=== PATIENT | male | born 1955 | race Caucasian/White ===

== ENCOUNTER 2018-12-16 07:43 | Inpatient (IN) ==
--- NOTE | 2018-11-24 16:40 | PAT Medication Instructions ---
Medication Instructions Date of Service November 24, 2018 Home Medications meloxicam 7.5 mg PO DAILY PRN multivitamin 1 tab PO QAM oxymetazoline [Afrin (oxymetazoline)] 1 spray INTRANASAL DAILY PRN undecylenic acid [Fungi-Nail] 1 applic TOPICAL BID PRN ASK your surgeon for instructions meloxicam 7.5 mg PO DAILY PRN STOP taking 24 hours before surgery undecylenic acid [Fungi-Nail] 1 applic TOPICAL BID PRN DO NOT take the morning of surgery multivitamin 1 tab PO QAM oxymetazoline [Afrin (oxymetazoline)] 1 spray INTRANASAL DAILY PRN (if needed) Other Notes If you have any questions please call us at [phone] or [phone] or [phone] or [phone]
--- NOTE | 2018-11-25 11:22 | Anesthesiology Consultation ---
Date of Service November 25, 2018 Assessment & Plan (1) Encounter for pre-operative examination: Chart Review Chart Review: Pending: Refer to Additional Notes / Consult section (pending preop testing (labs, EKG, CXR)) and Patient seen in Pre Admission Testing Teaching & Discussion Pre-Anesthesia Teaching/Discussion Notes: Instructed NPO after midnight before surgery,except medications with 15 cc of water. Medication instructions prov ided according to the PAT guidelines. History Surgery Operation Date: 12/16/18 10:40 Proposed Procedures p Right Total Knee Arthroplasty - Dontae Bautista MD Height/Weight Height: 5 ft 6 in Weight: 78.4 kg Allergies Allergy/AdvReac Type Severity Reaction Status Date / Time No Known Allergies Allergy Verified 11/21/18 08:04 Medications Home Medications Medication Instructions Recorded Confirmed Last Taken meloxicam 7.5 mg PO DAILY PRN 11/21/18 11/21/18 Unknown multivitamin 1 tab PO QAM 11/21/18 11/21/18 Unknown oxymetazoline [Afrin 1 spray INTRANASAL DAILY PRN 11/21/18 11/21/18 Unknown (oxymetazoline)] undecylenic acid [Fungi-Nail] 1 applic TOPICAL BID PRN 11/21/18 11/21/18 Unknown Past Medical History Medical History DJD (degenerative joint disease) Seasonal allergies Exercise / Class Metabolic Activity II 4-5 Yardwork/Stairs/Walk up hill Past Surgical History Surgical History Hx of arthroscopy of right knee Hx of colonoscopy Hx of tonsillectomy Past Anesthesia History No Hx of Anesthesia Complications and No Family Hx of Anesthesia Complications History of PONV No Hx of PONV and Hx of Motion Sickness (remote hx (on boat ride)) Social History Smoking Status: Never smoker Do You Dip or Chew Tobacco: No Hx Alcohol Use: Yes Alcohol type: beer alcohol intake frequency: a few times a month Hx Substance Use: No substance use type: does not use Review of Systems Occasional diet related reflux. Patient denies chest pain, shortness of breath, dyspnea on exertion, cough, wheezing, palpitations. Physical Exam Vital Signs VITALS BP 147/97 (per patient, baseline BP 130's/80's; Patient advised to followup with PCP regarding elevated BP) P 69 TEMP 97.7 SP02 97%RA RESP 16 PHYSICAL Full neck and c-spine range of motion. Full TMJ range of motion. TMD 3 finger breaths Mallampati Score 2 Dentition: intact Lungs: clear throughout to auscultation Cardiac: regular rate and rhythm, no murmurs noted Spine: normal Carotid arteries: negative bruit Extremities: no edema
--- NOTE | 2018-11-25 11:56 | XRay Report ---
XR chest Pre-admission PA/Lat CLINICAL HISTORY: Preoperative chest COMPARISON STUDY: No previous studies for comparison. FINDINGS: The cardiac and mediastinal contours are normal. There is no evidence of focal pulmonary co nsolidation. There is no evidence of failure. No pleural effusions are visualized.[ There is minimal subsegmental lingular atelectasis/scarring. IMPRESSION: No active disease in the chest. Electronically signed by: Trav Downey M.D. 11/25/2018 11:55 AM
[2018-11-25 12:31] LABS: Basophils # (auto) 0.03 K/uL (0-0.2); Basophils % (auto) 0.5 %; Eosinophils # (auto) 0.48 K/uL (0-0.5); Eosinophils % (auto) 8.2 %; Hematocrit (blood only) 45.2 % (42-52); Hemoglobin 15.5 g/dL (14.0-18.0); Lymphocytes # (auto) 1.75 K/uL (1.2-3.4); Lymphocytes % (auto) 29.9 %; Mean Corpuscular Hgb Conc 34.3 g/dL (32-36); Mean Corpuscular Volume 87.4 fL (80-100); Mean Platelet Volume 9.7 fL (7.4-10.4); Monocytes # (auto) 0.83 K/uL (0.11-0.59); Monocytes % (auto) 14.2 %; Neutrophils # (auto) 2.77 K/uL (1.4-6.5); Neutrophils % (auto) 47.2 %; Platelet Count 269 K/uL (130-400); RDW Coefficient of Variation 14.1 % (11.5-14.5); RDW Standard Deviation 45.3 fL (36.4-46.3); Red Blood Count 5.17 M/uL (4.7-6.1); White Blood Count 5.86 K/uL (4.8-10.8)
[2018-11-25 12:46] LABS: Calcium 9.1 mg/dl (8.5-10.1); Creatinine Clr Calc Pharmacy 71.4 ml/min; Est GFR (African American) 88.6; Est GFR (Non-African American) 76.4; Potassium 4.2 mmol/L (3.5-5.1)
[2018-11-25 12:49] LABS: Partial Thromboplastin Time 26.3 Seconds (21.0-31.0); Prothrombin Time 10.5 Seconds (9.0-12.0)
--- NOTE | 2018-12-10 20:02 | History and Physical Report ---
DATE OF ADMISSION: 12/16/2018 CHIEF COMPLAINT: Right knee pain and discomfort. HISTORY OF PRESENT ILLNESS: A 63-year-old gentleman from [place], who presents for treatment of his right knee. He has got a long history of right knee problems and his right knee was scoped by Dr. Murillo back in 2006. It really has bothered him ever since then. He has been through extensive conservative treatment including therapy, viscosupplementation and steroid shots, which have not helped much. He takes meloxicam with minimal relief. He has got global pain. The more he walks, the more it hurts. He would like to have his knee fixed. PAST MEDICAL HISTORY: Includes gastroesophageal reflux disease. PAST SURGICAL HISTORY: Includes right knee arthroscopy [place] [address] Murillo. ALLERGIES: HAY FEVER. CURRENT MEDICATIONS: Meloxicam. SOCIAL HISTORY: A 63-year-old male. He is . Does not smoke. Rare alcohol intake. FAMILY HISTORY: Noncontributory. REVIEW OF HISTORY: Negative for diabetes, neurologic problem, vascular problem, bleeding disorders. Denies any chest pain or shortness of breath. No history of DVT or PE. No known bleeding problems. PHYSICAL EXAMINATION: GENERAL: Reveals a healthy, pleasant, middle-aged male. Looks to be in good health. HEENT: Benign. NECK: Supple, no lymphadenopathy. LUNGS: Clear to auscultation. HEART: Regular rate and rhythm. ABDOMEN: Soft, nontender, nondistended. EXTREMITIES: Grossly neurovascularly intact except as follows: Examination of the right knee reveals the patient ambulates with a bit of a limp. He has got varus alignment to his knee and does have a varus thrust with weightbearing. He is tender over the medial joint line. Small knee effusion. He has got soft endpoint to his Luly and increased translation. No real pivot. No varus or valgus instability. Sukhwinder's causes pain but no mechanical symptoms. Range of motion is 5 degrees short of full extension, 125 degrees of flexion. No particular pain with hip motion. X-RAYS: X-ray of the right knee is reviewed. It shows advanced right knee medial compartment DJD. He has got complete loss of his medial joint space. He has got tibial femoral subluxation and osteophytes off the medial femoral condyle and medial tibial plateau. He has got moderate patellofemoral arthritis as well. ASSESSMENT: A 63-year-old male with a history of knee arthroscopy in the past with right knee degenerative joint disease. 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 He has failed conservative care. PLAN: We talked about treatment. We are going to proceed with right total knee replacement. The risks and benefits of right total knee replacement were explained to the patient including but not limited to DVT, PE, , infection, neurological injury, vascular injury, bleeding problem, pain, limited range of motion, stiffness, failure to relieve symptoms, incomplete relief of symptoms, need for further surgery in the future, fracture, leg length inequality, nerve palsy, etc. The patient understands and desires to proceed. Informed consent was obtained. We did talk to him about holding his meloxicam 10 days preop. He will plan to be discharged home and either do home health or outpatient therapy.
[~2018-12-16 07:43] MED LIST: ACETAMINOPHEN 500 MG TAB PO SCH; BUPIVACAINE 0.5 % 5 MG/1 ML PF 10ML VIAL ONE; BUPIVACAINE LIPOSOME/PF 266 MG, BUPIVACAINE/EPINEPHRINE 50 ML, SODIUM CHLORIDE 0.9% 30 ... INFIL SCH; CEFAZOLIN 2000MG 2,000 MG/15 ML SYR IV SCH; FAMOTIDINE 20 MG TAB PO SCH; GABAPENTIN 600 MG DOSE PO SCH; LR 500ML BOLUS, THEN 15ML/HR IV SCH; LR 60ML/HR IV SCH; METOCLOPRAMIDE HCL 10 MG TABLET PO SCH; SCOPOLAMINE 1.5 MG TDSY TD SCH; TRANEXAMIC ACID 1,000 MG **IV Intra-op IV SCH
--- NOTE | 2018-12-16 08:52 | History & Physical Bridge Note ---
Date of Service December 16, 2018 History & Physical Bridge Note I have examined the patient, reviewed the History & Physical and in the interval since the performance of the History & Physical I have noted the following changes of clinical significance: no changes noted
[2018-12-16] MEDS ORDERED: ONDANSETRON INJ 2 MG/ML 2 ML VIAL IV PRN ×2 (09:26→14:18)
[2018-12-16] MEDS ORDERED: ATROPINE SULFATE 0.1 MG/ML 10ML SYR IV PRN (09:26)
[2018-12-16] MEDS ORDERED: fentaNYL citrate 100 MCG/2 ML VIAL IV PRN (09:26)
[2018-12-16] MEDS ORDERED: ePHEDrine sulfate 50 MG/ML AMP IV PRN (09:26)
[2018-12-16] MEDS ORDERED: MIDAZOLAM HCL 1 MG/ML 2ML VIAL ONE (09:56)
[2018-12-16] MEDS ORDERED: fentaNYL citrate 100 MCG/2 ML VIAL ONE (09:56)
[2018-12-16] MEDS ORDERED: PROPOFOL IV EMULSION 10 MG/ML 20 ML VIAL IV ONE (10:40)
[2018-12-16] MEDS ORDERED: BACITRACIN INJ 50,000 UNIT VIAL ONE (10:54)
[2018-12-16] MEDS ORDERED: SODIUM CHLORIDE 0.9% PF 50 ML VIAL ONE (10:54)
[2018-12-16] MEDS ORDERED: BUPIVACAINE LIPOSOME 1.3% 266 MG/20 ML VIAL ONE (10:54)
[2018-12-16] MEDS ORDERED: BUPIVACAINE/EPINEPHRINE 0.25% 1:200,000 30 ML VIAL ONE (10:54)
[2018-12-16] MEDS ORDERED: ePHEDrine sulfate 50 MG/ML SYR ONE (12:44)
--- NOTE | 2018-12-16 12:49 | Post Operative Brief Note ---
PG Immediate Post Op with CF Date of Surgery December 16, 2018 Pre & Post Diagnosis Operation Date: 12/16/18 10:40 Pre-Op Diagnosis: Right Knee Advanced Degenerative Joint Disease Post-Op Diagnosis: Right Knee Advanced Degenerative Joint Disease Procedure Operation Date: 12/16/18 10:40 Actual Procedures p Right Total Knee Arthroplasty(Right) - Dontae Bautista MD Surgeon Dontae Bautista MD Protective Services Case Worker Ruth, PAC Estimated Blood Loss 50 Findings Consistent with Post-Op Diagnosis Fluids 1500 cc Specimens Specimen Description: Permanent specimen A: right knee bone and tissue Drains Phillips Catheter (16fr phillips catheter placed by Vicki Miranda PA-C, without diff iculty; phillips demonstrates clear yellow urine. Output measured and recorded by anesthsia.) Anesthesia Type Spinal MAC Complications none Disposition Accompanied Patient To Recovery: No Disposition: Recovery Room
--- NOTE | 2018-12-16 13:27 | XRay Report ---
TWO VIEWS RIGHT KNEE CLINICAL HISTORY: Postoperative examination. FINDINGS: AP and crosstable lateral portable views of the right knee are obtained. A right knee arthr oplasty is in near anatomic alignment. There has been undersurface remodeling of the patella. No acut e fracture is seen. There are expected postoperative changes around the knee including skin clips, so ft tissue edema, and subcutaneous gas. IMPRESSION: Expected postoperative changes status post right knee arthroplasty. No acute fracture is seen. Electronically signed by: Fabian Morataya M.D. 12/16/2018 1:25 PM
--- NOTE | 2018-12-16 14:12 | Anesthesiology Progress Note ---
Date of Service December 16, 2018 Anesthesia Post Procedure Vital Signs Vital Signs: Temp Pulse Pulse Resp BP Pulse Ox 12/16/18 13:50 97.5 F L 69 17 114/62 96 12/16/18 13:40 56 L 19 109/58 L 96 12/16/18 13:30 62 17 129/65 96 12/16/18 13:20 77 19 122/65 97 12/16/18 13:10 71 24 119/66 99 12/16/18 13:00 58 L 24 100/57 L 97 12/16/18 12:54 97.5 F L 64 14 103/56 L 95 12/16/18 08:23 97.5 F L 72 18 153/96 H 99 Transfer of Care Handoff Completed per policy Notes Mental Status: alert / awake / arousable and participated in evaluation Patient Amnestic to Procedure: Yes Nausea / Vomiting: adequately controlled Pain: adequately controlled Airway Patency, RR, SpO2: stable & adequate BP & HR: stable & adequate Hydration State: stable & adequate Neuraxial Anesthesia: was administered and sensory block is resolving Anesthetic Complications: no major complications apparent and Pt Satisfied with anesthetic care
[2018-12-16] MEDS ORDERED: NALOXONE HCL 0.4 MG/1 ML VIAL/CARP IV PRN (14:18)
[2018-12-16] MEDS ORDERED: TAMSULOSIN HCL 0.4 MG CAP PO PRN (14:18)
[2018-12-16] MEDS ORDERED: OXYMETAZOLINE 0.05% 30 ML BTL PRN (14:18)
[2018-12-16] MEDS ORDERED: METOCLOPRAMIDE HCL INJ 5 MG/ML 2 ML VIAL IV PRN (14:18)
[2018-12-16] MEDS ORDERED: UNDECYLENIC ACID TOP PRN (14:18)
[2018-12-16] MEDS ORDERED: ALUMINUM/MAGNESIUM SUSP 30 ML UDC PO PRN (14:18)
[2018-12-16] MEDS ORDERED: HYDROmorphone INJ 0.5 MG/0.5 ML SYR IV PRN (14:18)
[2018-12-16] MEDS ORDERED: bisacodyL 10 MG SUPP PR PRN (14:18)
[2018-12-16] MEDS ORDERED: MAGNESIUM HYDROXIDE SUSP 30 ML UDC PO PRN (14:18)
[2018-12-16] MEDS ORDERED: OXYCODONE HCL IR 5 MG TAB (IMMEDIATE RELEASE) PO PRN (14:18)
[2018-12-16] MEDS ORDERED: SODIUM CHLORIDE 0.9% 1000ML 1,000 ML IV SCH (15:00)
--- NOTE | 2018-12-16 15:42 | Progress Note ---
DATE: 12/16/2018 SUBJECTIVE: A 63-year-old gentleman postop from a right knee replacement. He is doing pretty well. Just starting to get a little discomfort in his leg. Denies any chest pain or shortness of breath. Not feeling dizzy or lightheaded. OBJECTIVE: VITAL SIGNS: Temperature is 36.5. Vital signs stable. GENERAL: Reveals a healthy, pleasant, middle-aged male. He is sitting up in bed and talking to his . He looks comfortable. LUNGS: Clear to auscultation. HEART: Has a regular rate and rhythm. ABDOMEN: Soft, nontender, nondistended. EXTREMITIES: Grossly neurovascularly intact except as follows: Examination of the right lower extremity reveals the leg to be well aligned. Dressing is clean, dry, and intact. He can dorsiflex and plantarflex his foot appropriately. He is neurologically intact. X-RAYS: His x-ray of the right knee from recovery room reviewed. It is slightly rotated film. No signs of problems. ASSESSMENT: A 63-year-old gentleman postop from a right knee replacement, doing well. His pain is controlled. He is neurologically intact. PLAN: 1. DVT prophylaxis including thigh-high TEDs, SCDs, and aspirin twice a day. 2. PT/OT. Weight bear as tolerated. Right total knee protocol. 3. Pain control, doing pretty well with current pain regimen. 4. IV antibiotics x24 hours. 5. Disposition: Plan to discharge to home and he is going to do outpatient therapy.
[2018-12-16] MEDS: CHECK SCOPOLAMINE PATCH PLACEMENT SCH (16:04)
[2018-12-16] MEDS: KETOROLAC 30 MG/ML VIAL IV SCH ×2 (16:05→21:51)
[2018-12-16] MEDS: FERROUS GLUCONATE 324 MG TAB PO SCH (17:44)
[2018-12-16] MEDS: ASCORBIC ACID 500 MG TAB PO SCH (17:44)
[2018-12-16] MEDS ORDERED: TRANEXAMIC ACID 1,000 MG in 0.9 % SODIUM CHLORIDE 100 ML IV SCH (18:50)
[2018-12-16] MEDS: CEFAZOLIN 1000MG 1,000 MG/7.5 ML SYR IV SCH (18:53)
[2018-12-16] MEDS: ASPIRIN 81 MG ECTAB PO SCH (20:17)
[2018-12-16] MEDS: TAPENTADOL HCL ER 50 MG TABCR PO SCH (20:17)
[2018-12-16] MEDS: ACETAMINOPHEN 500 MG TAB PO SCH (20:17)
[2018-12-16] MEDS: DOCUSATE SODIUM 100 MG CAP PO SCH (20:17)
--- NOTE | 2018-12-16 20:45 | Operative Report ---
DATE OF OPERATION: 12/16/2018 SURGEON: Dontae Bautista MD. CORPORATE TUTOR: MAKENZIE Macias PREOPERATIVE DIAGNOSIS: Right knee degenerative joint disease. POSTOPERATIVE DIAGNOSIS: Right knee degenerative joint disease. PROCEDURE PERFORMED: Right cemented posterior stabilized total knee arthroplasty. COMPLICATIONS: None. ESTIMATED BLOOD LOSS: 50 mL. FLUID REPLACEMENT: 1500 mL of crystalloid fluid replacement. TOURNIQUET TIME: 59 minutes at 300 mmHg. ANESTHESIA: Spinal with adductor canal block. DRAINS: None. SPECIMENS: Right knee sent for pathology. OPERATIVE INDICATIONS: The patient is a 63-year-old gentleman who has had a long history of right knee pain and discomfort. He had a right knee arthroscopy done over 10 years ago, which provided minimal relief. He has developed persistent and progressive pain over the past 10 years. He failed conservative treatment. X-rays revealed advanced DJD. He elected to proceed with total knee arthroplasty. OPERATIVE FINDINGS: Revealed advanced right knee DJD. Extensive grade 4 [id number] disease in the medial and patellofemoral compartments and spotty grade 4 changes laterally. He had a significant joint effusion with varus deformity to his knee and osteophytes in all 3 compartments. OPERATIVE IMPLANTS: Consisted of: 1. Biomet Vanguard size 62.5 right posterior stabilized femoral component. 2. A Biomet size 71 tibial tray. 3. A 12 mm posterior stabilized polyethylene insert. 4. A 31 x 8 all poly patella. OPERATIVE PROCEDURE: The patient was taken to the operating room, identified and placed on the operating table in supine position. All contact areas were appropriately padded. IV antibiotics were provided by the anesthesia team. A spinal anesthetic and adductor canal block had been provided in the holding area. Mackey catheter was placed in sterile fashion. A right thigh tourniquet was then placed and the right lower extremity was then prepped and draped in usual sterile fashion. The right leg was elevated and exsanguinated with an Esmarch and tourniquet was placed at 300 mmHg. An anterior approach to the right knee was then performed through a longitudinal incision centered over the patella. Sharp dissection was carried through the subcutaneous tissue down to the level of the extensor mechanism. Medial parapatellar arthrotomy incision was made. Some subperiosteal dissection was carried out medially. The fat pad resected from underneath the patellar tendon. The lateral patellofemoral ligament was released. The patella was everted and knee was flexed. The osteophytes were taken off the distal femur. The ACL and PCL were then released from the distal femur and the tibia subluxated anteriorly. External tibial alignment jig was then placed in the anterior face of the tibia and adjusted 16 mm medially. Proximal tibial cut was made to remove about a millimeter or 2 of bone from most deficient aspect of the medial tibial plateau. Some osteophytes were taken off the medial and posteromedial tibial plateau. Tibia was sized to a size 71. Attention was then drawn to the femur. The distal femur was entered with a sharp drill bit. Intramedullary canal was suctioned. A right 6 degree valgus cutting guide was placed. Distal femoral cutting block was pinned in place. Distal femoral cut was made to take an additional 3 mm of bone off the distal femur. The femur was then sized to a size 62.5. We did downsize this slightly. The AP cutting block was pinned parallel to the epicondylar axis, which was 4 degrees of external rotation. The anterior cut, anterior chamfer cut, posterior cut, posterior chamfer cuts were made. Box cutting guide was placed and adjusted slightly lateral and the box cut was made. The knee was flexed. The remnants of medial and lateral menisci were excised. The osteophytes were taken off the posterior aspect of the femur. Trial femoral component was placed. The tibial tray was pinned in maximum external rotation and drill and stem punch were used to create defect in proximal tibia for the tibial tray. The knee was then trialed and the 12 mm insert fit most appropriately. Attention was then drawn to the patella. The patella was cleaned of all soft tissues. Patella thickness measured 22 mm in thickness, it was cut down to 13. It was sized to a size 31 patella. Lug holes were drilled for a 31 patella. Lateral osteophytes were removed. Patella button was placed. Knee was taken through range of motion, patella tracked nicely with no thumbs test. Attention was then drawn toward placement of permanent components. All trial components were removed. Bone plug was placed into the distal femur to limit blood loss. A double batch of Palacos G cement was mixed. Biomet PaletteAppguard size 62.5 right posterior stabilized femoral component, size 71 tibial tray, a 12 mm posterior stabilized polyethylene insert, and a 31 x 8 all poly patella were then cemented in place. Knee was brought out into full extension until cement hardened. A final cement check was then performed. Pericapsular tissues were injected with a total of 100 mL of combination of 20 mL of Exparel, 30 mL of normal saline, 50 mL of 0.25% Marcaine with epinephrine. The patient did receive 1 g of tranexamic acid. The tourniquet was then let down for a final tourniquet time of 59 minutes. Hemostasis was assured using electrocautery. The extensor mechanism was then closed with combination of #1 PDS suture and #1 Vicryl suture in a [id number] fashion. Extensor mechanism was checked and found to be intact. The subcutaneous tissue was then closed with 2 Dexon suture in a buried interrupted fashion. Skin was closed with skin familia. Leg was then cleaned, dried and a sterile dressing of Xeroform, 4 x 4, sterile cast padding and Balbir bandage were applied. The patient was then transferred to the recovery room in stable condition. The patient tolerated the procedure well with no complications. All instrument, needle and sponge counts were correct at the end of the operation. I attest to the content of the Intraoperative Record and any orders documented therein. Any exception s are noted below.
[2018-12-16] MEDS ORDERED: SENNA 8.6 MG TAB PO SCH (21:00)
[2018-12-17] MEDS: CHECK SCOPOLAMINE PATCH PLACEMENT SCH (01:02)
[2018-12-17] MEDS: KETOROLAC 30 MG/ML VIAL IV SCH ×2 (03:08→10:08)
[2018-12-17] MEDS: CEFAZOLIN 1000MG 1,000 MG/7.5 ML SYR IV SCH (03:09)
[2018-12-17 05:57] LABS: Hematocrit (blood only) 39.6 % (42-52); Hemoglobin 13.3 g/dL (14.0-18.0); Mean Corpuscular Hemoglobin 29.7 pg (25-34); Mean Corpuscular Hgb Conc 33.6 g/dL (32-36); Mean Corpuscular Volume 88.4 fL (80-100); Mean Platelet Volume 9.5 fL (7.4-10.4); Platelet Count 217 K/uL (130-400); RDW Coefficient of Variation 14.2 % (11.5-14.5); RDW Standard Deviation 46.4 fL (36.4-46.3); Red Blood Count 4.48 M/uL (4.7-6.1); White Blood Count 8.81 K/uL (4.8-10.8)
[2018-12-17] MEDS: ACETAMINOPHEN 500 MG TAB PO SCH (06:11)
[2018-12-17 06:26] LABS: BUN Creatinine Ratio 15.2 (10-20); Calcium 8.5 mg/dl (8.5-10.1); Creatinine Clr Calc Pharmacy 63.1 ml/min; Est GFR (African American) 75.9; Est GFR (Non-African American) 65.5; Potassium 4.4 mmol/L (3.5-5.1)
--- NOTE | 2018-12-17 07:37 | Progress Note ---
DATE: 12/17/2018 SUBJECTIVE: A 63-year-old gentleman postop day 1 from right knee replacement. He is doing well. Pain is controlled. Had a pretty good night. No chest pain or shortness of breath. Not feeling dizzy or lightheaded. OBJECTIVE: VITAL SIGNS: Temperature 36.8. Vital signs stable. GENERAL: Shows a pleasant, middle-aged male. He is sitting up in bed, looks quite comfortable. EXTREMITIES: Examination of the right leg reveals the dressing to be clean, dry and intact. Leg is well aligned. Calf is soft and supple. He can dorsiflex and plantarflex his foot appropriately. LABORATORY DATA: Hemoglobin 13.3. Hematocrit 39.6. Electrolytes are stable. ASSESSMENT: A 63-year-old gentleman postop day 1 from right knee replacement, doing well. His pain is controlled. He is neurologically intact. PLAN: 1. DVT prophylaxis including thigh-high TEDs, SCDs, and aspirin twice a day. 2. PT/OT. Weight bear as tolerated. Right total knee protocol. 3. Pain control, doing pretty well with current pain regimen. 4. Disposition: He is hoping to be discharged today. We will see how therapy goes. If his pain is controlled, we will discharge today and he is going to do outpatient therapy.
[2018-12-17] MEDS: FERROUS GLUCONATE 324 MG TAB PO SCH (08:08)
[2018-12-17] MEDS: DOCUSATE SODIUM 100 MG CAP PO SCH (08:08)
[2018-12-17] MEDS: ASCORBIC ACID 500 MG TAB PO SCH (08:08)
[2018-12-17] MEDS: ASPIRIN 81 MG ECTAB PO SCH (08:08)
[2018-12-17] MEDS: TAPENTADOL HCL ER 50 MG TABCR PO SCH (08:09)
[2018-12-17] MEDS ORDERED: MULTIVITAMIN TAB PO SCH ×2 (09:00)
--- NOTE | 2018-12-22 00:41 | Discharge Summary ---
ADMITTING PHYSICIAN AND SURGEON: Dontae Bautista MD ADMITTING DIAGNOSIS: Right knee degenerative joint disease. SURGERY PERFORMED: Right total knee arthroplasty. SECONDARY DIAGNOSIS: Gastroesophageal reflux disease. CONSULTATIONS: None obtained. HISTORY AND PHYSICAL EXAMINATION: Well documented in the patient's chart. HOSPITAL COURSE: The patient was admitted on 12/16/2018, underwent total knee arthroplasty, tolerated the procedure well. There were no complications. He was transferred to the PACU postoperatively and later to the orthopedic floor for further care. He was given Ancef for antibiotic prophylaxis, SADAF stockings, SCDs, and aspirin for DVT prophylaxis. Hemoglobin, hematocrit, and vital signs were monitored and remained stable, did not require any blood transfusions. There were no complications. By postoperative day 1, he was tolerating a regular diet. Pain was controlled with oral pain medicine. He was participating in physical therapy. On postop day 1, he was discharged home. He was given printed discharge instructions including new prescriptions for Extra Strength Tylenol, aspirin, and oxycodone. Continue his home medicines. Continue physical therapy, weightbearing as tolerated, SADAF stockings. Follow up in approximately 2 weeks postop or sooner if there are any problems or concerns.
== END 2018-12-17 13:19 | disposition home or self-care (01) | DRG 470 ==
LOC: ASU 07:43 → 3E 12:53